=== PATIENT | female | born 1995 | race Caucasian/White ===

== ENCOUNTER → 2018-08-09 | Outpatient (CLI) | payer OTHER ==
--- NOTE | 2018-08-10 00:26 | PAIN ---
DATE OF SERVICE: 08/09/2018 INITIAL CONSULTATION FOR PAIN CLINIC CHIEF COMPLAINT: Right foot pain. HISTORY OF PRESENT ILLNESS: This is a 22-year-old female who presents with history of right foot pain for about a year. No specific injury or action that she is aware of. The pain just began increasing and she noticed it when she was running and some swelling in her foot as well when she runs, but otherwise is not swelling. The patient reports it is worse with walking for about a half a mile or more and she can only walk about half a mile before it starts to hurt. No pain on the left foot and is only with activity, walking and standing. The patient reports it is better at rest. It awakens her from sleep occasionally, but not usually, but it does not affect her ability to walk significantly greater than half a mile, but after that or running after just a few minutes of running, it does increase the pain significantly. There are no symptoms on the left foot, only on the right. The patient reports it is constant, sharp, stabbing, throbbing, occasionally with swelling with running, once again. She has seen a carpenter maintenance who put her in a walking boot and a different type of brace, she describes, which did not help the pain, actually made it somewhat worse. The patient reports she feels better with wearing regular shoes, sandals. She has good quality running shoes that she uses to walk for distances and is still doing some running, although she has cut this back significantly since the pain began last year. The patient reports no loss of motor function, and again, no symptoms on the left side. The patient did have an MRI scan by history, which was reportedly normal from record of referral, but not the actual MRI scan itself. The patient also again has seen a carpenter maintenance, I do not have access to those notes at this time of dictation. The patient has tried soaking the foot, which does feel better in the water and just keeping range of motion going, but again, no significant loss of function or weakness, but pain with running most significantly. The patient reports her disability rate from 0-10, 10 being the worst, 3 with family and home responsibilities, 8 with recreation and occupation, 0 with social activity, sexual behavior and life support activities. The patient has tried [id number]-kacwsoc anti-inflammatories, which helped very mildly, but does not decrease the pain significantly. The patient has had no other treatments at this time except for Podiatry evaluation. PAST MEDICAL HISTORY: Significant for only the right foot pain and previous wisdom tooth surgery. MEDICATIONS: The patient is taking no prescription medications currently, has taken some lipi-aks-gujeykg anti-inflammatories, Advil and Aleve. ALLERGIES: The patient has no known drug allergies. FAMILY HISTORY: Significant for no major medical problems or conditions that she lists. SOCIAL HISTORY: The patient does not drink alcohol, does not smoke, does not use any illegal, illicit or recreational drugs. She is active duty, is , lives with her spouse in [place], [place]. REVIEW OF SYSTEMS: The patient's review of systems is positive for those items mentioned in history of present illness. All systems reviewed and otherwise negative. It is complete, full and well documented on the patient's chart. PHYSICAL EXAMINATION: VITAL SIGNS: Today, the patient's blood pressure is 123/65, pulse 87, respirations 18, temperature is 98.3 degrees Fahrenheit. Height 5 feet 4 inches, weight is 178 pounds. GENERAL: The patient is awake, alert, oriented, appropriate, very pleasant demeanor. HEENT: Head is normocephalic, atraumatic. Extraocular movements are intact and symmetrical. Oral cavity, mucous membranes are moist and pink. Dentition is intact. NECK: Shows anterior throat supple without palpable lymphadenopathy noted. Swallow reflex symmetrical. CHEST: Shows normal with inspection. Breath sounds clear to auscultation bilaterally. HEART: Shows S1, S2 clear. No murmurs auscultated. ABDOMEN: Soft, nontender, nondistended. No palpable organomegaly is noted. No rebound or guarding demonstrated. BACK: Shows spine grossly in the midline. Normal appearing thoracic kyphosis, cervical lordotic curvature and lumbar lordotic curvature. Back shows good rotational motion throughout the cervical, lumbar and thoracic distributions without limitation. Paraspinous musculature is symmetrical on inspection and normal on palpation without tenderness throughout. EXTREMITIES: The patient's lower extremities show deep tendon reflexes 2+ in the patellar, 1+ in tendo calcaneus tendons and are equal. Motor exam is strong with 5/5 dorsiflexion, extension, quadriceps and hamstring flexion. Peripheral pulses are 2+ posterior tibial and dorsalis pedis pulses. No peripheral edema is noted bilaterally with dorsiflexion on the right side. The patient does report some pain at the ball of the foot and into the toes, all 5 of them relieved with relaxation of the foot. This is not true with dorsi extension of the right foot. Left foot shows good dorsiflexion, extension without pain reported. Lower extremities are warm and dry to touch, equal in color and appearance. No mottling, no discoloration, no allodynia, no erythema, no swelling, once again on the feet bilaterally. The patient shows good inversion, eversion of the ankle without pain reported. No tenderness over the malleoli both laterally and medially over the Achilles tendon. Homans sign is negative on the right calf. No tenderness with palpation on the bilateral calves. The patient is able to stand, stand on her toes without significant difficulty or loss of balance. The patient reports no pain with this maneuver and is walking with a normal appearing gait, not using any assistive devices. IMPRESSION: This is a 22-year-old female with history of right foot pain for approximately a year without any specific inciting injury, worse with running and extended walking without other etiology. PLAN: Options were discussed with the patient. We will refer the patient for physical therapy with right foot strengthening, stretching, massage therapy and ultrasound treatment as well as hydrotherapy and increase very slowly activity as tolerated with the right foot. The patient will follow up on as needed basis at this time. Also, follow up with Podiatry if necessary. RILEY BURNS MD DR: DANDRE/kavitha JOB#: [id number] / [id number] [facility], , [place]
== END | disposition home or self-care (01) ==
LOC: PNCL 10:09
PROVIDERS: ATTEND Anesthesiology
DX: M79.671 Pain in right foot (principal)
CPT/HCPCS: G0463